=== PATIENT | female | born 1965 | race Caucasian/White ===

== ENCOUNTER 2020-02-08 21:39 | Emergency (ER) | payer OTHER ==
--- NOTE | 2020-02-08 21:43 | PHYS DOC ---
General Adult HPI: HPI: Patient is a 55 year old female who presents with above hx and complaints of possible exposure to COVID 19. Pt. follows with Rachelle Daley. Pt. while in check in, became angry that a 33 week gravid female taken back for allergic reaction before her and left before completion of check in. Review of Systems: Review of Systems: Not completed Family History: Family History: Not completed. Current Medications: Current Meds: Not available Allergies: Allergies: Not available. Physical Exam: PE: Not seen left before complete check in. EKG: EKG: [] Radiology/Procedures: Radiology/Procedures: [] Heart Score: Risk Factors: Risk Factors: DM, Current or recent (<one month) smoker, HTN, HLP, family history of CAD, obesity. Risk Scores: Score 0 - 3: 2.5% MACE over next 6 weeks - Discharge Home Score 4 - 6: 20.3% MACE over next 6 weeks - Admit for Clinical Observation Score 7 - 10: 72.7% MACE over next 6 weeks - Early Invasive Strategies Course & Med Decision Making: Course & Med Decision Making Pertinent Labs and Imaging studies reviewed. (See chart for details) Pt. left during check in. Pt. angry 34 Gravid pt. with allergic reaction taken back ahead of her. [] Dragon Disclaimer: Dragon Disclaimer: This electronic medical record was generated, in whole or in part, using a voice recognition dictation system. Departure Departure: Referrals: SANDRA GUTIERREZ DO (PCP) Bernard Disclaimer This chart was dictated in whole or in part using Voice Recognition software in a busy, high-work load, and often noisy Emergency Department environment. It may contain unintended and wholly unrecognized errors or omissions. RENA DOMINGUEZ MD Feb 08, 2020 21:43
== END 2020-02-08 22:00 | disposition left against medical advice (07) ==
LOC: ER 21:39
DX: Z20.828 Contact with and (suspected) exposure to other viral communicable diseases (principal); Z53.21 Procedure and treatment not carried out due to patient leaving prior to being seen by health care provider